=== PATIENT | female | born 1950 | race Caucasian/White ===

== ENCOUNTER 2021-10-28 10:11 | Emergency (ER) | payer MEDICARE, OTHER ==
[~2021-10-28] VITALS: Ht 152.4 cm; Wt 113.4 kg
--- NOTE | 2021-10-28 11:00 | NUR ---
FEELS "PRESSURE IN BACK OF HEAD WHEN ASLEEP" AND FEELS DIZZY UPON WAKING UP OR WHEN WATCHING TV. PATIENT IS A SOLE CAREGIVER OF SICK AT HOME FOR 1 MONTH. HE CLAIMED THAT IT IS TOO STRESSFUL FOR HER NOW. PLACED COMFORTABLY IN BED. VITALS CHECKED. ATTACHED TO MONITOR.
[2021-10-28] MEDS ORDERED: ONDANSETRON HCL/PF 4 MG/2 ML VIAL IVP ONE (11:30)
[2021-10-28] MEDS ORDERED: MECLIZINE HCL 12.5 MG TABLET PO ONE (11:30)
[2021-10-28] MEDS ORDERED: IV NS 0.9% 500 ML BAG IV ONE (11:30)
[2021-10-28] MEDS ORDERED: ACETAMINOPHEN 325 MG TABLET PO ONE (11:30)
--- NOTE | 2021-10-28 11:34 | NUR ---
EKG DONE AT BEDSIDE
[2021-10-28] MEDS ORDERED: MECLIZINE HCL 25 MG TABLET ONE (11:37)
[2021-10-28] MEDS ORDERED: ACETAMINOPHEN 650 MG/20.3 ML UDC ONE (11:37)
[2021-10-28] MEDS ORDERED: ONDANSETRON 4 MG TAB.RAPDIS ONE (11:37)
--- NOTE | 2021-10-28 11:45 | NUR ---
SEEN BY DR DUMONT AT BEDSIDE.
[2021-10-28 11:49] LABS: BASOPHILS % (AUTO) 0.3 % (0.0-2.0); EOSINOPHILS % (AUTO) 0.6 % (0.0-6.0); HEMATOCRIT 34 % (33-45); HEMOGLOBIN 11.4 g/dL (11.5-14.8); LYMPHOCYTES # (AUTO) 1.6 K/uL (0.8-4.8); LYMPHOCYTES % (AUTO) 19.2 % (20.0-44.0); MEAN CORPUSCULAR HGB CONC 34 g/dl (31.0-36.0); MEAN CORPUSCULAR VOLUME 91 fL (82-100); MONOCYTES # (AUTO) 0.6 K/uL (0.1-1.30); MONOCYTES % (AUTO) 7.2 % (2.0-12.0); NEUTROPHILS # (AUTO) 6.1 K/uL (1.8-8.9); NEUTROPHILS % (AUTO) 72.7 % (43.0-81.0); PLATELET COUNT (AUTO) 238 K/uL (150-450); RED BLOOD CELL COUNT(AUTO) 3.68 MIL/uL (4.0-5.2); WHITE BLOOD COUNT (AUTO) 8.4 K/uL (4.3-11.0)
--- NOTE | 2021-10-28 11:58 | NUR ---
IV CANNULA G20 INSERTED ON LEFT AC USING G20
[2021-10-28] MEDS ORDERED: ONDANSETRON HCL/PF 4 MG/2 ML VIAL ONE (12:01)
[2021-10-28 12:03] LABS: CALCIUM, SERUM 9.2 mg/dL (8.5-10.1); CARBON DIOXIDE 29 mmol/L (21-32); CHLORIDE 105 mmol/L (98-107); CREATININE 1.1 mg/dL (0.6-1.3); GLUCOSE 114 mg/dL (74-106); POTASSIUM 3.9 mmol/L (3.5-5.1); SODIUM SERUM 142 mmol/L (136-145); UREA NITROGEN, BLOOD 25 mg/dL (7-18)
--- NOTE | 2021-10-28 12:03 | NUR ---
PT WAS BROUGHT TO RADIOLOGY ROOM FOR CT SCAN
[2021-10-28 12:08] LABS: ALANINE AMINOTRANSFERASE 24 U/L (12-78); ALBUMIN 3.9 g/dL (3.4-5.0); ALKALINE PHOSPHATASE 53 U/L (46-116); ASPARTATE AMINOTRANSFERASE 16 U/L (15-37); BILIRUBIN,DIRECT 0.1 mg/dL (0.0-0.2); BILIRUBIN,TOTAL 0.4 mg/dL (0.2-1.0); TOTAL PROTEIN, SERUM 7.3 g/dL (6.4-8.2)
--- NOTE | 2021-10-28 12:37 | NUR ---
PATIENT CANNOT PROVIDE URINE AT THE MOMENT.
[2021-10-28] MEDS ORDERED: ACET325T53 PO (14:44)
[2021-10-28] MEDS ORDERED: MECL-159 PO (14:44)
--- NOTE | 2021-10-28 14:50 | NUR ---
iv cannula removed
--- NOTE | 2021-10-28 14:58 | NUR ---
Patient discharged to home in stable condition. Written and verbal after care instructions given. Patient verbalizes understanding of instruction.
[2021-10-28 14:59] VITALS: BP 139/84
== END 2021-10-28 14:59 | disposition home or self-care (01) ==
LOC: ER 10:16
DX: R51.9 Headache, unspecified (principal); R42 Dizziness and giddiness; I10 Essential (primary) hypertension; J45.909 Unspecified asthma, uncomplicated; F41.9 Anxiety disorder, unspecified; Z60.2 Problems related to living alone
CPT/HCPCS: 36415; 70450; 71045; 80048; 80076; 84484; 85025; 93005; 96374; 99285; J2405; J7040; J8597; Q0162